=== PATIENT | female | born 1965 | race Hispanic/Latino ===

== ENCOUNTER 2017-11-02 10:33 | Emergency (ER) | payer MEDICARE, OTHER ==
[~2017-11-02] VITALS: Ht 157.5 cm; Wt 101.6 kg
[~2017-11-02 10:33] MED LIST: GLYBURID-METFO1 EAC3 PO; HYDROCODONE-AP1 EA28 PO; LEVETIRACETAM PO; NOVOLOG 70100 UNITS/ SC; PHENYTOIN PO; Z.0.IBUPROFEN600 MG PO; Z.0.LANSOPRAZOLE30 M PO; Z.0.LISINOPRIL10 MG PO
[2017-11-02] MEDS ORDERED: KETOROLAC TROMETHAMINE 30 MG/ML VIAL IV STA (10:56)
[2017-11-02] MEDS ORDERED: ONDANSETRON HCL INJ 2 MG/ML VIAL IV STA (10:56)
[2017-11-02 11:20] LABS: BASOPHILS # (AUTO) 0.1 (0.0-0.1); BASOPHILS % 0.5 % (0.0-1.0); EOSINOPHILS # (AUTO) 0.2 (0.0-0.4); EOSINOPHILS % 1.4 % (0.0-6.0); HEMATOCRIT 36.5 % (34.2-44.1); HEMOGLOBIN 11.6 g/dL (12.0-16.0); LYMPHOCYTES # (AUTO) 2.6 (1.0-3.2); LYMPHOCYTES % 20.5 % (18.0-39.1); MEAN CORPUSCULAR HEMOGLOBIN 24.9 pg (28-32); MEAN CORPUSCULAR HGB CONC 31.8 g/dL (31-35); MEAN CORPUSCULAR VOLUME 78.5 fL (81-99); MONOCYTES # (AUTO) 0.5 (0.2-0.8); MONOCYTES % 4.2 % (4.4-11.3); NEUTROPHILS # (AUTO) 9.1 (2.1-6.9); NEUTROPHILS % 72.7 % (38.7-80.0); PLATELET COUNT 276 x10e3/uL (140-360); RED BLOOD COUNT 4.65 x10e6/uL (3.6-5.1); RED CELL DISTRIBUTION WIDTH 14.9 % (11.7-14.4)
[2017-11-02 11:22] LABS: CLARITY,URINE CLOUDY (CLEAR); COLOR,URINE YELLOW (YELLOW); LEUKOCYTE ESTERASE ,URINE NEGATIVE (NEGATIVE); NITRITE,URINE POSITIVE (NEGATIVE); PROTEIN,URINE DIPSTICK 2+ (NEGATIVE)
[2017-11-02 11:23] LABS: BILIRUBIN,URINE NEGATIVE (NEGATIVE); KETONES,URINE 2+ (NEGATIVE); URINE UROBILINOGEN 0.2 mg/dL (0.2 - 1)
[2017-11-02 11:28] LABS: BACTERIA,URINE MODERATE /HPF; EPITHELIAL CELLS,URINE FEW /LPF; HYALINE CASTS 0-1 (0-1); MUCUS,URINE FEW (RARE); RBC,URINE >50 /HPF (0-5)
[2017-11-02 11:31] LABS: ANION GAP 13.7 mmol/L (8-16); BLOOD UREA NITROGEN 13 mg/dL (7-26); BUN/CREATININE RATIO 17 (6-25); CALCIUM 9.3 mg/dL (8.4-10.2); CARBON DIOXIDE 27 mmol/L (22-29); CHLORIDE 98 mmol/L (98-107); CREATININE, SERUM 0.78 mg/dL (0.57-1.11); EST GLOMERULAR FILTRATION RATE > 60 ML/MIN (60-); GLUCOSE 258 mg/dL (74-118); POTASSIUM 3.7 mmol/L (3.5-5.1); SODIUM 135 mmol/L (136-145)
[2017-11-02] MEDS ORDERED: CEFTRIAXONE SOD 1 GM VIAL IV STA (11:34)
--- NOTE | 2017-11-02 11:42 | Diagnostic Imaging Report ---
EXAM: CT Abdomen and Pelvis WITHOUT contrast INDICATION: \S\Stone Protocol \S\Y COMPARISON: None. TECHNIQUE: Abdomen and pelvis were scanned utilizing a multidetector helical scanner from the lung base to the pubic symphysis without administration of IV contrast. Absence of intravenous contrast decreases sensitivity for detection of focal lesions and vascular pathology. Coronal and sagittal reformations were obtained. Routine protocol was performed. IV CONTRAST: None ORAL CONTRAST: Water COMPLICATIONS: None RADIATION DOSE: Total DLP: 790.7 mGy*cm Estimated effective dose: (DLP x 0.015 x size factor) mSv CTDIvol has been reviewed. It is below the limits set by the Radiation Protocol Committee (RPC). FINDINGS: LINES and TUBES: None. LOWER THORAX: Three vessel coronary artery calcifications. HEPATOBILIARY: No focal hepatic lesions. No biliary ductal dilation. GALLBLADDER: No radio-opaque stones or sludge. No wall thickening. SPLEEN: No splenomegaly. PANCREAS: No focal masses or ductal dilatation. ADRENALS: No adrenal nodules KIDNEYS/URETERS: No hydronephrosis. No cystic or solid mass lesions. A few punctate hyperdensities in the left kidney may reflect renals plaques. Mild left hydronephrosis related to a 0.3 cm calculus at the ureteropelvic junction. Associated perinephric stranding. An adjacent calcification lateral to the ureter likely represents a gonadal vein phlebolith. GI TRACT: No abnormal distention, wall thickening, or evidence of bowel obstruction. There are diverticula within the colon without evidence of diverticulitis. Appendix is normal. PELVIC ORGANS/BLADDER: Unremarkable. LYMPH NODES: No lymphadenopathy. VESSELS: There is mild atherosclerotic disease in the aorta and major arterial branches. PERITONEUM / RETROPERITONEUM: No free air or fluid. BONES: Unremarkable. SOFT TISSUES: Unremarkable. IMPRESSION: A 0.3 cm calculus at the left ureteropelvic junction results in mild left hydronephrosis. Signed by: DR. Randy John MD on 11/02/2017 11:39 AM
[2017-11-02 12:46] VITALS: BP 123/57
== END 2017-11-02 13:05 | disposition home or self-care (01) ==
LOC: ER 10:33
DX: R10.32 Left lower quadrant pain (principal); R11.2 Nausea with vomiting, unspecified; N20.1 Calculus of ureter; I10 Essential (primary) hypertension; E11.9 Type 2 diabetes mellitus without complications; E78.5 Hyperlipidemia, unspecified
CPT/HCPCS: 36415; 74176; 80048; 81001; 85025; 99284; J0696; J1885; J2405

== ENCOUNTER 2018-02-10 13:17 | Observation (INO) | payer MEDICARE, OTHER ==
[~2018-02-10] VITALS: Ht 157.5 cm; Wt 101.6 kg
[2018-02-10] MEDS ORDERED: KETOROLAC TROMETHAMINE 30 MG/ML VIAL IV STA (13:37)
[2018-02-10 13:56] LABS: BASOPHILS # (AUTO) 0.1 (0.0-0.1); BASOPHILS % 0.8 % (0.0-1.0); EOSINOPHILS # (AUTO) 0.7 (0.0-0.4); EOSINOPHILS % 5.1 % (0.0-6.0); HEMATOCRIT 39.2 % (34.2-44.1); HEMOGLOBIN 12.2 g/dL (12.0-16.0); LYMPHOCYTES # (AUTO) 3.7 (1.0-3.2); LYMPHOCYTES % 28.3 % (18.0-39.1); MEAN CORPUSCULAR HEMOGLOBIN 24.7 pg (28-32); MEAN CORPUSCULAR HGB CONC 31.1 g/dL (31-35); MEAN CORPUSCULAR VOLUME 79.4 fL (81-99); MONOCYTES # (AUTO) 0.8 (0.2-0.8); MONOCYTES % 5.8 % (4.4-11.3); NEUTROPHILS # (AUTO) 7.9 (2.1-6.9); NEUTROPHILS % 59.7 % (38.7-80.0); PLATELET COUNT 280 x10e3/uL (140-360); RED BLOOD COUNT 4.94 x10e6/uL (3.6-5.1)
[2018-02-10 13:57] LABS: BILIRUBIN,URINE NEGATIVE (NEGATIVE); CLARITY,URINE CLEAR (CLEAR); COLOR,URINE YELLOW (YELLOW); KETONES,URINE NEGATIVE (NEGATIVE); LEUKOCYTE ESTERASE ,URINE NEGATIVE (NEGATIVE); NITRITE,URINE NEGATIVE (NEGATIVE); PROTEIN,URINE DIPSTICK 2+ (NEGATIVE); URINE UROBILINOGEN 0.2 mg/dL (0.2 - 1)
[2018-02-10 14:09] LABS: BACTERIA,URINE MANY /HPF; EPITHELIAL CELLS,URINE FEW /LPF; WBC,URINE (MAN) 0-5 /HPF (0-5)
[2018-02-10 14:12] LABS: ANION GAP 14.5 mmol/L (8-16); BLOOD UREA NITROGEN 17 mg/dL (7-26); BUN/CREATININE RATIO 22 (6-25); CALCIUM 9.7 mg/dL (8.4-10.2); CARBON DIOXIDE 23 mmol/L (22-29); CHLORIDE 108 mmol/L (98-107); CREATININE, SERUM 0.76 mg/dL (0.57-1.11); EST GLOMERULAR FILTRATION RATE > 60 ML/MIN (60-); GLUCOSE 83 mg/dL (74-118); POTASSIUM 3.5 mmol/L (3.5-5.1); SODIUM 142 mmol/L (136-145)
--- NOTE | 2018-02-10 15:41 | Diagnostic Imaging Report ---
EXAM: CT Abdomen and Pelvis WITHOUT contrast INDICATION: \S\Stone Protocol \[id number] \S\1410 \S\Y COMPARISON: CT dated 11/02/2017 TECHNIQUE: Abdomen and pelvis were scanned utilizing a multidetector helical scanner from the lung base to the pubic symphysis without administration of IV contrast. Absence of intravenous contrast decreases sensitivity for detection of focal lesions and vascular pathology. Coronal and sagittal reformations were obtained. Routine protocol was performed. IV CONTRAST: None ORAL CONTRAST: Water COMPLICATIONS: None RADIATION DOSE: Total DLP: 738.12 mGy*cm Estimated effective dose: (DLP x 0.015 x size factor) mSv CTDIvol has been reviewed. It is below the limits set by the Radiation Protocol Committee (RPC). FINDINGS: LINES and TUBES: None. LOWER THORAX: Unremarkable HEPATOBILIARY: Unenhanced liver is unremarkable. No biliary ductal dilation. GALLBLADDER: No radio-opaque stones or sludge. Mild wall thickening, which could be partially due to underdistention. SPLEEN: No splenomegaly. PANCREAS: No focal masses or ductal dilatation. ADRENALS: No adrenal nodules KIDNEYS/URETERS: 3 mm obstructive left ureteral calculus has slightly advanced, now within left mid ureter. There is unchanged mild left hydroureteronephrosis and perinephric fat stranding. Right kidney is unremarkable. No right hydronephrosis or calculus. GI TRACT: No abnormal distention, wall thickening, or evidence of bowel obstruction. Appendix is normal. PELVIC ORGANS/BLADDER: Unremarkable. Pelvic phleboliths. LYMPH NODES: No lymphadenopathy. VESSELS: Unremarkable. PERITONEUM / RETROPERITONEUM: No free air or fluid. BONES: Degenerative changes of spine, especially at L3-L4 and L4-L5. SOFT TISSUES: Unremarkable. IMPRESSION: 3 mm obstructive left ureteral calculus has slightly advanced, now within left mid ureter, with unchanged mild left hydroureteronephrosis. Signed by: Dr. Bashir Gutierrez MD on 02/10/2018 3:37 PM
[2018-02-10] MEDS ORDERED: DEXTROSE 50% SYRINGE 50 ML IV PRN (16:15)
[2018-02-10] MEDS: INSULIN REGULAR, HUMAN 100 UNIT/1 ML 3ML VIAL SQ SCH ×2 (16:30→21:12)
[2018-02-10] MEDS: PIPER-TAZ 3.375 GM 50 ML IV SCH (17:04)
[2018-02-10] MEDS: SODIUM CHLORIDE 0.9% 1000ML 1,000 ML IV SCH (17:04)
[2018-02-10 17:55] VITALS: BP 123/51
[2018-02-10 17:58] VITALS: BP 123/51
[2018-02-10] MEDS ORDERED: PIPER-TAZ 3.375 GM / NS 50ML IV SCH (18:00)
[2018-02-10] MEDS ORDERED: LEVETIRACETAM500 MG PO (18:13)
[2018-02-10] MEDS ORDERED: HUMALOG MI100 UNIT/2 (18:13)
[2018-02-10] MEDS ORDERED: LISINOPRIL-HCT1 EAC2 PO (18:13)
[2018-02-10] MEDS ORDERED: ATORVASTATIN CA40 MG PO (18:13)
[2018-02-10] MEDS ORDERED: METFORMIN HCL500 MG PO (18:14)
[2018-02-10 20:00] VITALS: BP 123/51
[2018-02-10 20:21] VITALS: BP 114/59
[2018-02-10] MEDS ORDERED: NON-FORMULARY MEDICATION (Atorvastatin Calcium 40 MG) PO SCH (21:00)
--- NOTE | 2018-02-10 21:18 | History and Physical ---
CHIEF COMPLAINT: Left flank pain. HPI: Ms. Pedro is a 52-year-old female admitted with left flank pain, found to have ureteral stone, a CT scan done in the emergency room. She reports that the symptoms were going on for last 3 days, progressively getting worse, it was associated with nausea. She has history of diabetes, hypertension, and seizure disorder. REVIEW OF SYSTEMS: GENERAL: Denies any fever or chills. HEAD: Denies any head trauma. ENT: Denies any earache. CVS: Denies any chest pain. RESPIRATORY: Denies any shortness of breath. GI: Nausea and vomiting. The rest of the review of systems are negative except as in HPI. PAST MEDICAL HISTORY: Diabetes, hypertension, seizure disorder. SURGICAL HISTORY: Tubal ligation. FAMILY AND SOCIAL HISTORY: She smoked for 25 years, quit for 9 years and restarted smoking. She denies any alcohol use. She is disabled, used to work in cafeteria. She lives with her grandchildren. PHYSICAL EXAMINATION: VITAL SIGNS: Temperature 99.4, pulse is 80, blood pressure 114/60, respiratory rate of 18. O2 sat 99%. HEENT: Head atraumatic, normocephalic. NECK: Supple. CHEST: Clear to auscultation bilaterally. No wheezing. HEART: S1 and S2 audible. ABDOMEN: Soft, nontender. EXTREMITIES: No clubbing, cyanosis, or edema. NEUROLOGICAL: Awake and alert. LABS: White count of 13,000; hemoglobin 12.2; platelets 280,000. Chemistry is within normal limits. CT of the abdomen and pelvis shows ureteral stones. ASSESSMENT: 1. Nephrolithiasis and ureteral stones. 2. Diabetes. 3. Hypertension. 4. Seizure disorder. PLAN: 1. Urology consult. 2. Resume home medications. 3. IV hydration. 4. IV antibiotics for possible UTI, UA is not showing any pyuria. Job#: [id number]
[2018-02-10] MEDS: ATORVASTATIN 40 MG TAB PO SCH (21:29)
[2018-02-10] MEDS: LEVETIRACETAM 500 MG TAB PO SCH (22:00)
[2018-02-11] VITALS (8 sets, daily range): BP systolic 92–157; BP diastolic 52–86
[2018-02-11] MEDS: SODIUM CHLORIDE 0.9% 1000ML 1,000 ML IV SCH ×3 (00:49→17:01)
[2018-02-11] MEDS: PIPER-TAZ 3.375 GM 50 ML IV SCH ×4 (00:49→18:00)
[2018-02-11 04:23] LABS: BASOPHILS # (AUTO) 0.1 (0.0-0.1); BASOPHILS % 0.7 % (0.0-1.0); EOSINOPHILS # (AUTO) 0.8 (0.0-0.4); EOSINOPHILS % 6.7 % (0.0-6.0); HEMATOCRIT 33.6 % (34.2-44.1); LYMPHOCYTES # (AUTO) 4.2 (1.0-3.2); LYMPHOCYTES % 34.6 % (18.0-39.1); MEAN CORPUSCULAR HEMOGLOBIN 24.6 pg (28-32); MEAN CORPUSCULAR HGB CONC 29.8 g/dL (31-35); MEAN CORPUSCULAR VOLUME 82.8 fL (81-99); MONOCYTES # (AUTO) 0.8 (0.2-0.8); MONOCYTES % 6.2 % (4.4-11.3); NEUTROPHILS # (AUTO) 6.3 (2.1-6.9); NEUTROPHILS % 51.6 % (38.7-80.0); PLATELET COUNT 225 x10e3/uL (140-360); RED BLOOD COUNT 4.06 x10e6/uL (3.6-5.1); RED CELL DISTRIBUTION WIDTH 16.2 % (11.7-14.4)
[2018-02-11 04:43] LABS: ANION GAP 13.7 mmol/L (8-16); BLOOD UREA NITROGEN 24 mg/dL (7-26); BUN/CREATININE RATIO 26 (6-25); CALCIUM 8.7 mg/dL (8.4-10.2); CARBON DIOXIDE 23 mmol/L (22-29); CHLORIDE 107 mmol/L (98-107); CREATININE, SERUM 0.92 mg/dL (0.57-1.11); EST GLOMERULAR FILTRATION RATE > 60 ML/MIN (60-); GLUCOSE 184 mg/dL (74-118); POTASSIUM 3.7 mmol/L (3.5-5.1); SODIUM 140 mmol/L (136-145)
[2018-02-11] MEDS: ONDANSETRON HCL INJ 2 MG/ML VIAL IV PRN ×3 (07:30→21:43)
--- NOTE | 2018-02-11 07:43 | Consultation ---
DATE OF CONSULTATION: February 11, 2018 UROLOGY CONSULTATION REASON FOR CONSULTATION: Renal colic. HISTORY OF PRESENT ILLNESS: Mindy Pedro is a 52-year-old woman that was noted to have a 3-mm left ureteral stone several months ago. The patient never followed up with a urologist. Her pain got better. Her pain returned and she returned to the emergency room. The patient seen a urologist previously for urinary incontinence. She was prescribed a medication for it, but she reports that the medicine really does not help her incontinence much. The patient had severe left-sided flank pain, reported to the emergency room, was found to have obstructive left ureterolithiasis with hydronephrosis and urological consultation was sought. PAST MEDICAL AND SURGICAL HISTORY 1. Diabetes mellitus. 2. Hypertension. 3. Seizure disorder. 4. Hypercholesterolemia. 5. Status post tubal ligation. 6. Bilateral lower extremity wounds. 7. 3, para 3 by normal spontaneous vaginal delivery. FAMILY HISTORY: Noncontributory to the active urological problem. SOCIAL HISTORY: The patient quit smoking for 9 years and has restarted smoking. She denies ethanol or drug use. 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 She lives with her grandchildren. CURRENT MEDICATIONS: Please refer to the MAR. ALLERGIES: NONE KNOWN. REVIEW OF SYSTEMS: As discussed above in the history of present illness and past medical history, otherwise negative for all systems. PHYSICAL EXAMINATION GENERAL: Morbidly obese woman, lying in the bed, in no apparent distress. VITAL SIGNS: She is currently afebrile. Vital signs currently stable. ABDOMEN: Soft, nondistended, currently is nontender, without current costovertebral angle tenderness. Kidneys are not palpable, without hepatosplenomegaly. No obvious evidence of hernia. For the remaining physical examination systems, please refer to the admission history and physical on the chart. LABORATORY STUDIES: CT scan of the abdomen and pelvis reveals a 3-mm proximal left ureteral stone that is actually in the midureter and has left hydroureteronephrosis that has been chronic. White blood cell count is 12,200, hemoglobin 10, platelets are normal 225,000. The patient's creatinine is normal at 0.92. Her calcium is normal at 8.7. Urinalysis significant for 6-10 RBCs, 0-5 WBCs, and many bacteria. Urine culture was ordered by the emergency room physician. For some reason, it is still not listed as pending in the computer. I asked the nurse to call microbiology to ensure that that is done. ASSESSMENT 1. Left ureterolithiasis. 2. Left hydroureteronephrosis. 3. Left renal colic. 4. Mixed-type urinary incontinence. 5. Morbid obesity. 6. Leukocytosis. 7. Anemia. PLAN 1. Will try a stone passage trial and if fails to progress, the patient will need a stent. 2. Ongoing urological followup is a must. 3. The incontinence can be worked up electively as an outpatient. Thank you very much for involving us in the care of your patient. Will be happy to follow him along with you, as well as an outpatient. Job#: [id number] CQ
[2018-02-11] MEDS: INSULIN REGULAR, HUMAN 100 UNIT/1 ML 3ML VIAL SQ SCH ×4 (08:37→21:00)
[2018-02-11] MEDS: LEVETIRACETAM 500 MG TAB PO SCH ×2 (09:00→17:08)
[2018-02-11] MEDS: HYDROCHLOROTHIAZIDE 25 MG TAB PO SCH (09:00)
[2018-02-11] MEDS: LISINOPRIL 10 MG TAB PO SCH (09:00)
[2018-02-11] MEDS: HYDROMORPHONE 1MG/1ML INJ IV PRN ×2 (12:45→20:21)
--- NOTE | 2018-02-11 17:08 | Diagnostic Imaging Report ---
PROCEDURE:X-RAY ABDOMEN - KUB COMPARISON:[facility], CT, CT ABDOMEN/PELVIS WO, 02/10/2018, 14:32. INDICATIONS:FOLLOW UP CT SCAN LEFT URETERAL CALCULI FINDINGS: No obstructive bowel gas pattern. 6 mm radiopaque density projecting to the left of the L3-L4 intervertebral disc space likely corresponds to the previously visualized left gonadal vein phlebolith. No radiopaque densities correspond to the previously visualized mid left ureteral calculus, which was located more caudally and medially on prior CT. No other radiopaque densities project over the genitourinary system. Multiple pelvic phleboliths. CONCLUSION: 1. No radiopaque densities correspond to the previously visualized mid left ureteral calculus. 2. Stable 6 mm radiopaque density projecting to the left of the L3-L4 intervertebral disc space, corresponding to a left gonadal vein phlebolith. Jorge Ortega M.D. Dictated by: Jorge Ortega M.D. on 02/11/2018 at 17:13 Electronically approved by: Jorge Ortega M.D. on 02/11/2018 at 17:13
[2018-02-11] MEDS: ATORVASTATIN 40 MG TAB PO SCH (20:21)
[2018-02-12] VITALS: BP 137/72
[2018-02-12] MEDS: PIPER-TAZ 3.375 GM 50 ML IV SCH ×5 (00:08→23:49)
[2018-02-12] MEDS: SODIUM CHLORIDE 0.9% 1000ML 1,000 ML IV SCH ×4 (01:20→23:49)
[2018-02-12 04:18] VITALS: BP 152/85
[2018-02-12] MEDS: HYDROMORPHONE 1MG/1ML INJ IV PRN (04:20)
[2018-02-12] MEDS: ONDANSETRON HCL INJ 2 MG/ML VIAL IV PRN (04:21)
[2018-02-12] MEDS: INSULIN REGULAR, HUMAN 100 UNIT/1 ML 3ML VIAL SQ SCH ×4 (07:30→21:25)
[2018-02-12 08:00] VITALS: BP 113/52
[2018-02-12] MEDS: HYDROCHLOROTHIAZIDE 25 MG TAB PO SCH (09:00)
[2018-02-12] MEDS: LISINOPRIL 10 MG TAB PO SCH (09:00)
[2018-02-12 12:00] VITALS: BP 118/81
[2018-02-12] MEDS ORDERED: ALPRAZOLAM 0.5 MG TAB ONE (12:26)
[2018-02-12] MEDS ORDERED: DIPHENHYDRAMINE HCL 25 MG CAP ONE (12:27)
[2018-02-12] MEDS ORDERED: BELLADONNA/OPIUM 30 MG SUPP RC ONE (13:11)
[2018-02-12] MEDS ORDERED: IOPAMIDOL 300MG/ML 50ML INFUS..BTL IV ONE (13:12)
[2018-02-12] MEDS: LEVETIRACETAM 500 MG TAB PO SCH ×2 (14:42→17:24)
[2018-02-12 16:00] VITALS: BP 101/53
[2018-02-12] MEDS ORDERED: PROPOFOL IV EMULSION 10 MG/ML 20 ML VIAL ONE (17:33)
[2018-02-12] MEDS ORDERED: SEVOFLURANE INHAL SOLN 250 ML PEN BTL ONE (17:33)
[2018-02-12] MEDS ORDERED: DEXAMETHASONE SOD PHOS INJ 4 MG/ML VIAL ONE (17:33)
[2018-02-12] MEDS ORDERED: ONDANSETRON HCL INJ 2 MG/ML VIAL ONE (17:33)
[2018-02-12] MEDS ORDERED: LIDOCAINE HCL 2% LOCAL INJ 5 ML SDV VIAL INJ ONE (17:33)
[2018-02-12 20:00] VITALS: BP 144/66
[2018-02-12] MEDS ORDERED: FENTANYL CITRATE/PF 100MCG/2 ML INJ ONE (20:19)
[2018-02-12] MEDS ORDERED: MIDAZOLAM HCL 2 MG/2 ML VIAL ONE (20:19)
[2018-02-12] MEDS: ATORVASTATIN 40 MG TAB PO SCH (21:25)
[2018-02-13] VITALS: BP 141/86
[2018-02-13 01:15] VITALS: BP 141/86
[2018-02-13 04:00] VITALS: BP 124/76
[2018-02-13] MEDS: PIPER-TAZ 3.375 GM 50 ML IV SCH ×2 (05:13→12:00)
[2018-02-13 08:00] VITALS: BP 121/64
[2018-02-13 08:22] LABS: BASOPHILS # (AUTO) 0.1 (0.0-0.1); BASOPHILS % 0.8 % (0.0-1.0); EOSINOPHILS # (AUTO) 0.9 (0.0-0.4); EOSINOPHILS % 8.3 % (0.0-6.0); HEMATOCRIT 32.7 % (34.2-44.1); HEMOGLOBIN 10.3 g/dL (12.0-16.0); LYMPHOCYTES # (AUTO) 2.9 (1.0-3.2); LYMPHOCYTES % 28.2 % (18.0-39.1); MEAN CORPUSCULAR HEMOGLOBIN 25.2 pg (28-32); MEAN CORPUSCULAR HGB CONC 31.5 g/dL (31-35); MONOCYTES # (AUTO) 0.6 (0.2-0.8); MONOCYTES % 5.9 % (4.4-11.3); NEUTROPHILS # (AUTO) 5.8 (2.1-6.9); NEUTROPHILS % 56.5 % (38.7-80.0); PLATELET COUNT 225 x10e3/uL (140-360); RED BLOOD COUNT 4.09 x10e6/uL (3.6-5.1); RED CELL DISTRIBUTION WIDTH 15.8 % (11.7-14.4)
[2018-02-13] MEDS: HYDROCHLOROTHIAZIDE 25 MG TAB PO SCH (08:31)
[2018-02-13] MEDS: SODIUM CHLORIDE 0.9% 1000ML 1,000 ML IV SCH (08:31)
[2018-02-13] MEDS: LEVETIRACETAM 500 MG TAB PO SCH (08:31)
[2018-02-13] MEDS: LISINOPRIL 10 MG TAB PO SCH (08:31)
[2018-02-13 08:39] LABS: ANION GAP 13.5 mmol/L (8-16); BLOOD UREA NITROGEN 17 mg/dL (7-26); BUN/CREATININE RATIO 19 (6-25); CALCIUM 8.9 mg/dL (8.4-10.2); CARBON DIOXIDE 26 mmol/L (22-29); CHLORIDE 105 mmol/L (98-107); EST GLOMERULAR FILTRATION RATE > 60 ML/MIN (60-); GLUCOSE 196 mg/dL (74-118); POTASSIUM 4.5 mmol/L (3.5-5.1); SODIUM 140 mmol/L (136-145)
[2018-02-13] MEDS: INSULIN REGULAR, HUMAN 100 UNIT/1 ML 3ML VIAL SQ SCH ×2 (08:49→12:00)
[2018-02-13 12:00] VITALS: BP 122/63
[2018-02-13] MEDS ORDERED: TYLENOL WITH C1 EACH PO (17:16)
[2018-02-13] MEDS ORDERED: LEVAQUIN500 MG PO (17:17)
[2018-02-13] MEDS ORDERED: DITROPAN XL5 MG PO (17:17)
--- NOTE | 2018-02-13 19:03 | Discharge Summary ---
FINAL DIAGNOSES 1. Ureterolithiasis and nephrolithiasis, status post stent placement. 2. Urinary tract infection. 3. Hypertension. 4. History of seizure disorder. 5. Diabetes. ADMISSION HISTORY AND HOSPITAL COURSE: Ms. Pedro is a 52-year-old female who presented with left flank pain, found to have nephrolithiasis and ureteral stone. Urology was consulted. The patient underwent stent placement by urology and they recommended to discharge the patient. The patient will be discharged home to follow up with primary care physician and follow up with urologist as an outpatient. DISCHARGE MEDICATIONS: List reviewed. YULIA SQUIRES MD Job#: [id number]
--- NOTE | 2018-04-15 00:45 | Operative Report ---
DATE OF PROCEDURE: February 12, 2018 PREOPERATIVE DIAGNOSES: 1. Left hydronephrosis due to stone. 2. Renal colic. POSTOPERATIVE DIAGNOSES: 1. Left hydronephrosis due to stone. 2. Renal colic. 3. Mild cystocele. 4. Mild rectocele. OPERATIONS PERFORMED: 1. Cystourethroscopy with bilateral ureteral catheterization and retrograde ureteropyelography (separate procedure performed for the renal colic). 2. Interpretation of retrograde ureteropyelography. 3. Supervision of fluoroscopy, no radiologist present. 4. Cystourethroscopy with insertion of left indwelling ureteral stent (separate procedure performed to relieve the hydronephrosis). ANESTHESIA: General. COMPLICATIONS: None. CLINICAL SUMMARY: Please refer to consultation from this hospitalization and the hospital chart. OPERATIVE PROCEDURE IN DETAIL: Informed consent was verified. Mindy Pedro was properly identified, taken to the operating room, and placed on the cystoscopy table in supine position. Anesthesia was uneventfully begun. The patient was then carefully and gently repositioned in the dorsal lithotomy position with all pressure points well padded. Her genitalia were prepared and draped in usual sterile fashion. The 22.5-Upper Sor[place] cystoscope sheath with the obturator in place was atraumatically inserted into patient's urethra and the bladder was drained. Panendoscopy of the urinary bladder revealed no suspicious mucosal lesions. No tumors, no stones, and no diverticula. Normally positioned and configured ureteral orifices were identified. A ureteral catheter was used to cannulate each ureter, and retrograde ureteral pyelograms were performed. Interpretation of retrograde ureteropyelography: Contrast was instilled in retrograde fashion bilaterally. There were no tumors, there were no suspicious lesions except for the filling defect in the left ureter. Proximal to that, there was hydroureteronephrosis. With cystoscopic and fluoroscopic guidance, a left-sided indwelling ureteral stent was then placed. It was coiled in patient's kidney as well as patient's bladder. The retaining suture was cut short. The patient's bladder was then drained. The cystoscope was withdrawn. Pelvic examination under anesthesia revealed a mild cystocele and mild rectocele. No abnormal palpable pelvic masses could be appreciated. Patient was then uneventfully reversed from anesthesia and taken to recovery room in stable condition. There were no complications to the procedure. Patient tolerated the procedure well. Plans will be to return the patient to the operating room in several weeks to remove her stent, perform ureteroscopy, and hopefully render the patient stent-free and stone-free. Job#: [id number]
== END 2018-02-13 17:44 | disposition home or self-care (01) ==
LOC: ER 13:17 → ERHOLD 16:25 → MED/SURG2 17:33
PROVIDERS: ADMIT Internal Medicine; ATTEND Internal Medicine
DX: N13.6 Pyonephrosis (principal); E11.9 Type 2 diabetes mellitus without complications; E78.5 Hyperlipidemia, unspecified; G40.909 Epilepsy, unspecified, not intractable, without status epilepticus; N39.46 Mixed incontinence; E66.01 Morbid (severe) obesity due to excess calories; D64.9 Anemia, unspecified; D72.829 Elevated white blood cell count, unspecified; Z87.891 Personal history of nicotine dependence; I10 Essential (primary) hypertension; Z68.41 Body mass index [BMI] 40.0-44.9, adult; N81.6 Rectocele; N81.10 Cystocele, unspecified
CPT/HCPCS: 36415 ×4; 52332; 74018; 74176; 74420; 80048 ×3; 81001; 82948 ×4; 83970; 84550; 85025 ×3; 87086; 87186; 96361 ×2; 96372; 99284; C1758; C2617; G0378 ×4; J1100; J1170 ×2; J1885; J2001; J2250; J2405 ×2; J2543 ×4; J7030 ×3; Q9967

== ENCOUNTER → 2018-03-07 | Day surgery (SDC) | payer MEDICARE, OTHER ==
[~2018-03-07] MED LIST changes: +ATORVASTATIN CA40 MG PO; +CEFTRIAXONE SOD 1 GM VIAL ONE; +DESFLURANE 240 ML BTL INH ONE; +DEXAMETHASONE SOD PHOS INJ 4 MG/ML VIAL ONE; +DITROPAN XL5 MG PO; +FENTANYL CITRATE/PF 100MCG/2 ML INJ ONE; +HUMALOG MI100 UNIT/2; +IOPAMIDOL 300MG/ML 50ML INFUS..BTL IV ONE; +LEVAQUIN500 MG PO; +LEVETIRACETAM500 MG PO; +LIDOCAINE HCL 2% LOCAL INJ 5 ML SDV VIAL INJ ONE; +LISINOPRIL-HCT1 EAC2 PO; +METFORMIN HCL500 MG PO; +MIDAZOLAM HCL 2 MG/2 ML VIAL ONE; +ONDANSETRON HCL INJ 2 MG/ML VIAL ONE; +PROPOFOL IV EMULSION 10 MG/ML 20 ML VIAL ONE; +TYLENOL WITH C1 EACH PO
--- NOTE | 2018-03-07 12:49 | Diagnostic Imaging Report ---
PROCEDURE:X-RAY ABDOMEN - KUB COMPARISON:CT abdomen and pelvis without contrast 02/10/2018. INDICATIONS:PREOPERATIVE XRAY FOR STENT SURGERY FINDINGS: Left internal ureteral stent is positioned with the proximal locking loop projecting over the left renal pelvis and the distal locking loop projecting over the urinary bladder. No suspicious calcifications are identified projecting along the course of the left ureteral stent or over the left renal shadow. Multiple pelvic phleboliths and uterine artery calcifications are again noted. The bowel gas pattern is nonobstructive. Regional skeletal structures are intact with multilevel degenerative disc changes of the lumbar spine. CONCLUSION: Internal left ureteral stent positioned as described. Previously described proximal left ureteral calculi are no longer visualized. Dictated by: Jeremiah Lopez M.D. on 03/07/2018 at 12:54 Electronically approved by: Jeremiah Lopez M.D. on 03/07/2018 at 12:54
--- NOTE | 2018-05-06 01:01 | Operative Report ---
DATE OF PROCEDURE: March 07, 2018 PREOPERATIVE DIAGNOSES 1. Left nephrolithiasis. 2. Left indwelling ureteral stent. POSTOPERATIVE DIAGNOSES 1. Left nephrolithiasis. 2. Left indwelling ureteral stent. 3. Mild cystocele. 4. Urethral hypermobility. OPERATIONS PERFORMED 1. Cystourethroscopy with complicated removal of left indwelling ureteral stent (separate procedure performed with separate scope for the diagnosis of stent). 2. Left ureteroscopy with stone manipulation (separate procedure performed for the nephrolithiasis). 3. Interpretation of retrograde ureteropyelography. 4. Radiological services for supervision of interpretation of ureteroscopy. 5. Supervision of fluoroscopy. No radiologist present. 6. Pelvic examination under anesthesia. ANESTHESIA: General. COMPLICATION: None. CLINICAL SUMMARY: Ms. Mindy Pedro is a 52-year-old woman with nephrolithiasis and a stent. She is brought for the above procedures. She is aware of the risks of bleeding, infection, injury to adjacent structures, need for additional procedures, and elected to proceed. OPERATIVE PROCEDURE IN DETAIL: Informed consent was verified. Ms. Mindy Pedro was properly identified, taken to the operating room, placed on the cystoscopy table in supine position. Anesthesia was uneventfully begun. The patient was then carefully and gently repositioned in dorsal lithotomy position with all pressure points well padded and her genitalia were prepared and draped in usual sterile fashion. The 22.5-Lao cystoscope sheath with an obturator in place was atraumatically inserted into the patient's urethra and the bladder was drained. Panendoscopy of urinary bladder revealed a stent emerging from the left ureteral orifice. The stent was somewhat encrusted. A guidewire was then placed alongside the stent and guided to below of patient's kidneys. The stent was then grasped, completely removed, then discarded. Semirigid ureteroscope was then brought up alongside the guidewire into the distal left ureter. Contrast was injected. There was sand, but no stones. We then placed a flexible ureteroscope over the guidewire and guided below the patient's kidney. Panendoscopy of the interrenal collecting system revealed some fine sand and very small stone fragments. These stones were yellow and may very well be uric acid stones. There were no suspicious lesions. A basket was utilized to grasp a sample stone and we extracted it. We re-introduced the ureteroscope. Performed panendoscopy. Irrigated to loosen all these fine sand fragments. No significantly sized stone fragments remained. The ureter was unremarkable for remaining stone debris. The patient's bladder then drained. The cystoscope was withdrawn. Pelvic examination under anesthesia revealed a mild cystocele with urethral hypermobility. No suspicious mucosal lesions were identified. There were no abnormal pelvic masses that could be appreciated. Interpretation of retrograde ureterography: Contrast was instilled in retrograde fashion via the ureteroscope on the left-hand side. There was fullness of the collecting system, but there was no evidence of filling defects and there was no evidence of obstruction. Unobstructed drainage was observed fluoroscopically. The ureter was unremarkable. The patient was uneventfully reversed from anesthesia, taken to recovery room in stable condition. There were no complications to procedure. She tolerated the procedure well. Plans will be to follow the patient up in the office and proceed with metabolic stone workup. Job#: [id number] CQ
--- OUTSIDE RECORDS SUMMARY | 2018-05-07 23:04 | XMS REPORT | Continuity of Care Document ---
Author Author [facility] Organization [facility] Address [address] [place] [address] Phone Unavailable Care Team Providers Care Press Reader Name Role Phone NO, PCP PCP Unavailable Insurance Providers Guarantor Mindy Dumas Address [address] [place] [address] Email [email or web address] by [employer] Payer [employer] Policy Number [id number] Subscriber's Name Mindy Dumas Relationship 18 Self / Same As Patient Effective Date 17 Payer [employer] Policy Number [id number] Subscriber's Name WillisMindy Relationship 18 Self / Same As Patient Group Name UNEMPLOYED Effective Date 13 Advance Directives Directive Response Recorded Date/Time Does the patient have an advance directive? No 02/10/18 5:56pm If yes, is advance directive on file with [facility]? No 03/07/12 11:50am If not on file with [facility] will patient provide a copy? No 03/07/12 11:50am Do you have a Directive to Physician? No 02/10/18 1:51pm Do you have a Medical Power of Rn Obgyn? No 02/10/18 1:51pm Do you have an out of hospital Do Not Resuscitate Order? No 02/10/18 1:51pm Do you have any special needs we should be aware of? No 02/10/18 1:51pm Do you have a support person here with you today? Yes 02/10/18 1:51pm Did patient receive Notice of Privacy Practices? Yes 02/10/18 1:51pm Did patient receive patient rights and responsibilities? Yes 02/10/18 1:51pm Problems No problem information available. Medications Current Home Medications Medication Dose Units Route Directions Days Qty Instructions Start Date Acetaminophen With Codeine (Tylenol With Codeine #3 Tablet) 1 Each Tablet 300 Mg Oral Every 4 Hours as needed for Pain Atorvastatin Calcium 40 Mg Tablet 40 Mg Oral Bedtime 30 Tab Insulin Npl/Insulin Lispro (Humalog Mix 75-25 Kwikpen) 100 Unit/1 Ml Insuln.pen 60 Twice A Day Levetiracetam 500 Mg Tablet 1 Tab Oral Twice A Day Levofloxacin (Levaquin) 500 Mg Tablet 500 Mg Oral Daily Lisinopril/Hydrochlorothiazide (Lisinopril-Hctz 10-12.5 Mg Tab) 1 Each Tablet 1 Tab Oral Daily Metformin Hcl 500 Mg Tablet 1,000 Mg Oral Twice A Day 60 Tab Oxybutynin Chloride (Ditropan Xl) 5 Mg Tab.er.24 5 Mg Oral Twice A Day 30 Tab Past Home Medications Medication Directions Ordered Status Glyburide, Micro/Metformin Hcl (Glyburid-Metformin 5-500 Mg Tb) 1 Each Tablet, 2 Each Oral Twice A Day Discontinued Hydrocodone Bit/Acetaminophen (Hydrocodone-Apap 7.5-750 Tb) 1 Each Tablet, 1 Each Oral As Needed Discontinued Ibuprofen 600 Mg Tablet, 600 Mg Oral As Needed Discontinued Insulin Aspart (Novolog 70/30 10ML Vial) 100 Units/Ml Ml, Units Subcutaneously Twice A Day Discontinued Lansoprazole 30 Mg Tab.rap.dr, 30 Mg Oral Daily Discontinued Levetiracetam 250 Mg Tablet, 250 Mg Oral Bedtime Discontinued Lisinopril 10 Mg Tablet, 10 Mg Oral Daily Discontinued Phenytoin Sodium Extended 200 Mg Capsule, 200 Mg Oral Bedtime Discontinued Social History No social history information available. Hospital Discharge Instructions No hospital discharge instruction information available. Plan of Care Discharge Date 02/13/18 5:44pm Disposition HOME, SELF-CARE Instructions/Education Provided Kidney Stones Prescriptions See Medication Section Referrals LYNNE LAMAR MD (Urology) Order Date: 3 Weeks Entered Date: 02/13/2018 5:19pm Address: [facility] [place] [address] Additional Instructions/Education Call Saadia in Dr. Lamar office and make appointment for stent removal. Functional Status Query Response Date Recorded Assistive Devices None February 10, 2018 5:58pm Ambulation Ability Independent February 10, 2018 5:58pm Toileting Ability Independent February 12, 2018 6:02pm Allergies, Adverse Reactions, Alerts No known allergies. Immunizations No immunization information available. Vital Signs Acute Vital Signs Vital Response Date/Time Temperature (Fahrenheit) 97.6 degrees F (97.6 - 99.5) 02/13/2018 12:00pm Pulse Pulse Rate (adult) 69 bpm (60 - 90) 02/13/2018 12:00pm Respiratory Rate 18 bpm (12 - 24) 02/13/2018 12:00pm Blood Pressure 122/63 mm Hg 02/13/2018 12:00pm Height 5 ft 2 in 02/10/2018 1:34pm Weight 224 lb 02/10/2018 1:34pm Body Mass Index 41.0 kg/m^2 02/10/2018 1:34pm Results Laboratory Results Test Name Result Units Flags Reference Collection Date/Time Result Date/ Time Comments Urine Hyaline Casts 0-1 0-1 11/02/2017 11:00am 11/02/2017 11:28am Urine Mucus FEW H RARE 11/02/2017 11:00am 11/02/2017 11:28am White Blood Count 10.19 x10e3/uL 4.8-10.8 02/13/2018 8:10am 02/13/2018 8:24am Red Blood Count 4.09 x10e6/uL 3.6-5.1 02/13/2018 8:10am 02/13/2018 8: 24am Hemoglobin 10.3 g/dL L 12.0-16.0 02/13/2018 8:10am 02/13/2018 8:24am Hematocrit 32.7 % L 34.2-44.1 02/13/2018 8:10am 02/13/2018 8:24am Mean Corpuscular Volume 80.0 fL L 81-99 02/13/2018 8:02/13/2018 8: 24am Mean Corpuscular Hemoglobin 25.2 pg L 28-32 02/13/2018 8:2017 8:24am Mean Corpuscular Hemoglobin Concent 31.5 g/dL 31-35 02/13/2018 8:02/13/2018 8:24am Red Cell Distribution Width 15.8 % H 11.7-14.4 02/13/2018 8:2017 8:24am Platelet Count 225 x10e3/uL 140-360 02/13/2018 8:02/13/2018 8: 24am Neutrophils (%) (Auto) 56.5 % 38.7-80.0 02/13/2018 8:02/13/2018 8: 24am Lymphocytes (%) (Auto) 28.2 % 18.0-39.1 02/13/2018 8:02/13/2018 8: 24am Monocytes (%) (Auto) 5.9 % 4.4-11.3 02/13/2018 8:02/13/2018 8: 24am Eosinophils (%) (Auto) 8.3 % H 0.0-6.0 02/13/2018 8:02/13/2018 8: 24am Basophils (%) (Auto) 0.8 % 0.0-1.0 02/13/2018 8:02/13/2018 8:24am IM GRANULOCYTES % 0.3 % 0.0-1.0 02/13/2018 8:02/13/2018 8:24am Neutrophils # (Auto) 5.8 2.1-6.9 02/13/2018 8:02/13/2018 8:24am Lymphocytes # (Auto) 2.9 1.0-3.2 02/13/2018 8:02/13/2018 8:24am Monocytes # (Auto) 0.6 0.2-0.8 02/13/2018 8:02/13/2018 8:24am Eosinophils # (Auto) 0.9 H 0.0-0.4 02/13/2018 8:02/13/2018 8: 24am Basophils # (Auto) 0.1 0.0-0.1 02/13/2018 8:10am 02/13/2018 8:24am Absolute Immature Granulocyte (auto 0.03 x10e3/uL 0-0.1 02/13/2018 8: 10am 02/13/2018 8:24am Urine Color YELLOW YELLOW 02/10/2018 1:50pm 02/10/2018 1:57pm Urine Clarity CLEAR CLEAR 02/10/2018 1:50pm 02/10/2018 1:57pm Urine Specific [place] 1.025 1.010-1.025 02/10/2018 1:50pm 2017 1:57pm Urine pH 5 5 - 7 02/10/2018 1:50pm 02/10/2018 1:57pm Urine Leukocyte Esterase NEGATIVE NEGATIVE 02/10/2018 1:50pm 2017 1:57pm Urine Nitrite NEGATIVE NEGATIVE 02/10/2018 1:50pm 02/10/2018 1:57pm Urine Protein 2+ H NEGATIVE 02/10/2018 1:50pm 02/10/2018 1:57pm Urine Glucose (UA) NEGATIVE NEGATIVE 02/10/2018 1:50pm 02/10/2018 1: 57pm Urine Ketones NEGATIVE NEGATIVE 02/10/2018 1:50pm 02/10/2018 1:57pm Urine Urobilinogen 0.2 mg/dL 0.2 - 1 02/10/2018 1:50pm 02/10/2018 1: 57pm Urine Bilirubin NEGATIVE NEGATIVE 02/10/2018 1:50pm 02/10/2018 1: 57pm Urine Blood 2+ H NEGATIVE 02/10/2018 1:50pm 02/10/2018 1:57pm Urine WBC 0-5 /HPF 0-5 02/10/2018 1:50pm 02/10/2018 2:10pm Urine RBC 6-10 /HPF H 0-5 02/10/2018 1:50pm 02/10/2018 2:10pm Urine Bacteria MANY /HPF H NONE 02/10/2018 1:50pm 02/10/2018 2:10pm Urine Epithelial Cells FEW /LPF NONE 02/10/2018 1:50pm 02/10/2018 2: 10pm Sodium Level 140 mmol/L 136-145 02/13/2018 8:10am 02/13/2018 8:40am Potassium Level 4.5 mmol/L 3.5-5.1 02/13/2018 8:10a02/13/2018 8:40am Chloride Level 105 mmol/L 98-107 02/13/2018 8:10a02/13/2018 8:40am Carbon Dioxide Level 26 mmol/L 22-29 02/13/2018 8:10a02/13/2018 8: 40am Anion Gap 13.5 mmol/L 8-16 02/13/2018 8:10a02/13/2018 8:40am Blood Urea Nitrogen 17 mg/dL 7-02/13/2018 8:10a02/13/2018 8:40am Creatinine 0.90 mg/dL 0.57-1.11 02/13/2018 8:10a02/13/2018 8:40am BUN/Creatinine Ratio 19 6-25 02/13/2018 8:10a02/13/2018 8:40am Estimat Glomerular Filtration Rate > 60 ML/MIN 60- 02/13/2018 8:10a 8:40am Ranges were taken from the National Kidney Disease Education Program and the National Kid[employer] literature. Reference ranges: 60 or greater: Normal 16-59 (for 3 consecutive months): Chronic kidney disease 15 or less: Kidney failure Glucose Level 196 mg/dL H 74-118 02/13/2018 8:10am 02/13/2018 8:40am Calcium Level 8.9 mg/dL 8.4-10.2 02/13/2018 8:10am 02/13/2018 8:40am Bedside Glucose 234 mg/dL H 70-120 02/13/2018 3:31pm 02/13/2018 4:27pm Meter ID: [id number] Uric Acid 3.6 mg/dL 2.6-8.0 02/13/2018 8:10am 02/13/2018 8:40am Microbiology Results Procedure Source Organism/Result Collection Date/Time Result Date/Time Result Status Urine Culture Urine,Random ESCHERICHIA COLI 02/10/2018 1:30pm 02/13/2018 8 :14am Final Procedures Procedure Status Date Provider(s) Cystoscopy with retrograde pyelography Completed 02/12/[address] of abdomen and pelvis without contrast Active 11/02/[address] of abdomen and pelvis without contrast Active 02/10/18 SEBAS DELVALLE MD Encounters Encounter Location Arrival/Admit Date Discharge/Depart Date Attending Provider Discharged Inpatient (obs) [facility] 02/10/18 4:25pm 07/22 5:44pm YULIA SQUIRES MD Departed Emergency Room [facility] 11/02/17 10:33am 11/02 1:05pm SEBAS DELVALLE MD
== END | disposition home or self-care (01) ==
LOC: OR 11:25
PROVIDERS: ATTEND Urology
DX: N20.0 Calculus of kidney (principal); Z46.6 Encounter for fitting and adjustment of urinary device; N81.10 Cystocele, unspecified; N36.41 Hypermobility of urethra; I10 Essential (primary) hypertension; E11.9 Type 2 diabetes mellitus without complications; Z01.810 Encounter for preprocedural cardiovascular examination; Z79.4 Long term (current) use of insulin
CPT/HCPCS: 36415; 74018; 74420; 82948; 88300; 93005; J0696; J1100; J2001; J2250; J2405

== ENCOUNTER 2018-07-16 18:03 | Emergency (ER) | payer MEDICARE, OTHER ==
[~2018-07-16] VITALS: Ht 167.6 cm; Wt 100.7 kg
[~2018-07-16 18:03] MED LIST changes: -CEFTRIAXONE SOD 1 GM VIAL ONE; -DESFLURANE 240 ML BTL INH ONE; -DEXAMETHASONE SOD PHOS INJ 4 MG/ML VIAL ONE; -FENTANYL CITRATE/PF 100MCG/2 ML INJ ONE; -IOPAMIDOL 300MG/ML 50ML INFUS..BTL IV ONE; -LIDOCAINE HCL 2% LOCAL INJ 5 ML SDV VIAL INJ ONE; -MIDAZOLAM HCL 2 MG/2 ML VIAL ONE; -ONDANSETRON HCL INJ 2 MG/ML VIAL ONE; -PROPOFOL IV EMULSION 10 MG/ML 20 ML VIAL ONE
[2018-07-16] MEDS ORDERED: SODIUM CHLORIDE 0.9% 1000ML 1,000 ML IV STA (18:31)
[2018-07-16] MEDS ORDERED: MORPHINE SULFATE INJ 4 MG/ML INJ IV ONE (18:45)
[2018-07-16 19:07] LABS: BASOPHILS # (AUTO) 0.1 (0.0-0.1); BASOPHILS % 0.7 % (0.0-1.0); EOSINOPHILS # (AUTO) 0.4 (0.0-0.4); EOSINOPHILS % 3.3 % (0.0-6.0); HEMATOCRIT 40.5 % (34.2-44.1); HEMOGLOBIN 12.7 g/dL (12.0-16.0); LYMPHOCYTES # (AUTO) 3.2 (1.0-3.2); LYMPHOCYTES % 24.4 % (18.0-39.1); MEAN CORPUSCULAR HEMOGLOBIN 26.1 pg (28-32); MEAN CORPUSCULAR HGB CONC 31.4 g/dL (31-35); MEAN CORPUSCULAR VOLUME 83.2 fL (81-99); MONOCYTES # (AUTO) 0.9 (0.2-0.8); MONOCYTES % 6.6 % (4.4-11.3); NEUTROPHILS # (AUTO) 8.4 (2.1-6.9); NEUTROPHILS % 64.5 % (38.7-80.0); PLATELET COUNT 314 x10e3/uL (140-360); RED BLOOD COUNT 4.87 x10e6/uL (3.6-5.1); RED CELL DISTRIBUTION WIDTH 15.4 % (11.7-14.4)
[2018-07-16 19:20] LABS: PREGNANCY TEST, URINE NEGATIVE (NEGATIVE)
[2018-07-16 19:24] LABS: CLARITY,URINE HAZY (CLEAR); COLOR,URINE YELLOW (YELLOW); LEUKOCYTE ESTERASE ,URINE NEGATIVE (NEGATIVE); NITRITE,URINE POSITIVE (NEGATIVE); PROTEIN,URINE DIPSTICK 2+ (NEGATIVE)
[2018-07-16 19:25] LABS: ALBUMIN 3.8 g/dL (3.5-5.0); ALBUMIN/GLOBULIN RATIO 0.8 (0.8-2.0); CALCIUM 9.5 mg/dL (8.4-10.2); CREATININE, SERUM 0.98 mg/dL (0.57-1.11); MAGNESIUM 2.6 MG/DL (1.3-2.1)
[2018-07-16 19:25] LABS: BILIRUBIN,URINE NEGATIVE (NEGATIVE); KETONES,URINE NEGATIVE (NEGATIVE); URINE UROBILINOGEN 0.2 mg/dL (0.2 - 1)
[2018-07-16 19:43] LABS: BACTERIA,URINE FEW /HPF; EPITHELIAL CELLS,URINE FEW /LPF; RBC,URINE >50 /HPF (0-5)
--- NOTE | 2018-07-16 20:27 | Diagnostic Imaging Report ---
EXAM: CT Abdomen and Pelvis WITHOUT contrast INDICATION: ^Stone protocol ^[id number] ^1900 COMPARISON: CT abdomen and pelvis 02/10/2018 TECHNIQUE: Abdomen and pelvis were scanned utilizing a multidetector helical scanner from the lung base to the pubic symphysis without administration of IV contrast. Absence of intravenous contrast decreases sensitivity for detection of focal lesions and vascular pathology. Coronal and sagittal reformations were obtained. Routine protocol was performed. IV CONTRAST: None. ORAL CONTRAST: Water RADIATION DOSE: Total DLP: 845.1 mGy*cm Estimated effective dose: (DLP x 0.015 x size factor) mSv COMPLICATIONS: None FINDINGS: LINES and TUBES: None. LOWER THORAX: Unremarkable HEPATOBILIARY: No focal hepatic lesions. No biliary ductal dilation. GALLBLADDER: No radio-opaque stones or sludge. No wall thickening. SPLEEN: No splenomegaly. PANCREAS: No focal masses or ductal dilatation. ADRENALS: No adrenal nodules KIDNEYS/URETERS: No hydronephrosis. No cystic or solid mass lesions. 5 mm calcified stone in the proximal left ureter, 3.5 cm below the UP junction, which is new compared to prior exam since the prior stone was more distal and smaller. There is moderate surrounding fat stranding. Mild left hydroureteronephrosis is unchanged. No calcified stones in both renal parenchyma or right ureter. GI TRACT: No abnormal distention, wall thickening, or evidence of bowel obstruction. Stable diverticulosis throughout the sigmoid colon without diverticulitis. Appendix is normal. PELVIC ORGANS/BLADDER: Unremarkable. LYMPH NODES: No lymphadenopathy. VESSELS: Unremarkable. PERITONEUM / RETROPERITONEUM: No free air or fluid. BONES: Multilevel degenerative changes of the lumbar spine. SOFT TISSUES: Unremarkable. IMPRESSION: 1. Proximal left ureteral stone (5 mm) with surrounding moderate fat stranding. 2. Stable diverticulosis of the sigmoid colon. Signed by: Dr. Samantha Wynne M.D. on 07/16/2018 8:23 PM
[2018-07-16] MEDS ORDERED: CEFUROXIME500 MG PO (21:01)
[2018-07-16] MEDS ORDERED: TYLENOL WITH C1 EACH PO (21:01)
[2018-07-16] MEDS ORDERED: ZOFRAN4 MG SL (21:01)
== END 2018-07-16 21:54 | disposition home or self-care (01) ==
LOC: ER 18:03
DX: R10.32 Left lower quadrant pain (principal); R11.2 Nausea with vomiting, unspecified; N20.1 Calculus of ureter; N30.91 Cystitis, unspecified with hematuria; I10 Essential (primary) hypertension; E11.9 Type 2 diabetes mellitus without complications; E78.5 Hyperlipidemia, unspecified
CPT/HCPCS: 36415; 74176; 80053; 81001; 81025; 82150; 83605; 83690; 83735; 85025; 87086; 99284; J7030; J2270

== ENCOUNTER 2018-12-01 22:48 | Emergency (ER) | payer MEDICARE, OTHER ==
[~2018-12-01] VITALS: Ht 167.6 cm; Wt 100.7 kg
[~2018-12-01 22:48] MED LIST changes: +CEFUROXIME500 MG PO; +ZOFRAN4 MG SL
[2018-12-01] MEDS ORDERED: ONDANSETRON HCL INJ 2MG/ML 2ML 2 MG/ML VIAL IV STA (22:57)
[2018-12-01] MEDS ORDERED: FAMOTIDINE 20 MG/2 ML VIAL IV STA (22:57)
[2018-12-01 23:31] LABS: BASOPHILS # (AUTO) 0.1 (0.0-0.1); BASOPHILS % 0.6 % (0.0-1.0); EOSINOPHILS # (AUTO) 0.6 (0.0-0.4); EOSINOPHILS % 4.2 % (0.0-6.0); HEMATOCRIT 38.3 % (34.2-44.1); HEMOGLOBIN 12.3 g/dL (12.0-16.0); LYMPHOCYTES # (AUTO) 5.4 (1.0-3.2); LYMPHOCYTES % 36.1 % (18.0-39.1); MEAN CORPUSCULAR HEMOGLOBIN 26.5 pg (28-32); MEAN CORPUSCULAR HGB CONC 32.1 g/dL (31-35); MEAN CORPUSCULAR VOLUME 82.4 fL (81-99); MONOCYTES # (AUTO) 0.8 (0.2-0.8); MONOCYTES % 5.3 % (4.4-11.3); NEUTROPHILS % 53.5 % (38.7-80.0); PLATELET COUNT 267 x10e3/uL (140-360); RED BLOOD COUNT 4.65 x10e6/uL (3.6-5.1); RED CELL DISTRIBUTION WIDTH 14.6 % (11.7-14.4)
[2018-12-01 23:33] LABS: CLARITY,URINE CLEAR (CLEAR); COLOR,URINE YELLOW (YELLOW); LEUKOCYTE ESTERASE ,URINE NEGATIVE (NEGATIVE); NITRITE,URINE NEGATIVE (NEGATIVE)
[2018-12-01 23:34] LABS: BILIRUBIN,URINE NEGATIVE (NEGATIVE); KETONES,URINE NEGATIVE (NEGATIVE); PROTEIN,URINE DIPSTICK NEGATIVE (NEGATIVE); URINE UROBILINOGEN 0.2 mg/dL (0.2 - 1)
[2018-12-01 23:43] LABS: BACTERIA,URINE MODERATE /HPF; EPITHELIAL CELLS,URINE RARE /LPF; RBC,URINE 0-5 /HPF (0-5)
[2018-12-02 00:15] LABS: ALANINE AMINOTRANSFERASE 28 IU/L (0-55); ALBUMIN 3.6 g/dL (3.5-5.0); ALBUMIN/GLOBULIN RATIO 0.8 (0.8-2.0); ALKALINE PHOSPHATASE 122 IU/L (40-150); AMYLASE 41 U/L (25-125); BLOOD UREA NITROGEN 26 mg/dL (7-26); BUN/CREATININE RATIO 30 (6-25); CALCIUM 9.6 mg/dL (8.4-10.2); CARBON DIOXIDE 24 mmol/L (22-29); CHLORIDE 103 mmol/L (98-107); CREATINE KINASE 65 IU/L (29-168); CREATININE, SERUM 0.86 mg/dL (0.57-1.11); EST GLOMERULAR FILTRATION RATE > 60 ML/MIN (60-); GLUCOSE 153 mg/dL (74-118); LIPASE 30 U/L (8-78); SODIUM 140 mmol/L (136-145)
--- NOTE | 2018-12-02 01:12 | Diagnostic Imaging Report ---
EXAMINATION: CHEST 2 VIEWS INDICATION: ^CHEST PAIN ^[id number] ^2335 ^Y COMPARISON: None FINDINGS: PA and lateral views TUBES and LINES: None. LUNGS: Lungs are well inflated. There is no evidence of pneumonia or pulmonary edema. PLEURA: No pleural effusion or pneumothorax. HEART AND MEDIASTINUM: The cardiomediastinal silhouette is unremarkable. BONES AND SOFT TISSUES: No acute osseous lesion. Soft tissues are unremarkable. UPPER ABDOMEN: No free air under the diaphragm. IMPRESSION: No acute thoracic abnormality. Signed by: Dr. Bashir Gutierrez MD on 12/02/2018 1:08 AM
== END 2018-12-02 01:30 | disposition home or self-care (01) ==
LOC: ER 22:48
DX: R07.89 Other chest pain (principal); N30.00 Acute cystitis without hematuria; K29.70 Gastritis, unspecified, without bleeding; E78.00 Pure hypercholesterolemia, unspecified; I10 Essential (primary) hypertension; E11.9 Type 2 diabetes mellitus without complications; G40.909 Epilepsy, unspecified, not intractable, without status epilepticus; Z87.442 Personal history of urinary calculi; F17.200 Nicotine dependence, unspecified, uncomplicated; Z79.4 Long term (current) use of insulin
CPT/HCPCS: 36415; 71046; 80053; 81001; 82150; 82550; 82553; 83690; 84484; 85025; 93005; 99284

== ENCOUNTER 2021-09-22 21:01 | Emergency (ER) | payer MEDICARE, OTHER ==
[~2021-09-22] VITALS: Ht 309.9 cm; Wt 106.6 kg
[2021-09-22 21:45] LABS: CLARITY,URINE CLOUDY (CLEAR); COLOR,URINE YELLOW (YELLOW); KETONES,URINE NEGATIVE (NEGATIVE); LEUKOCYTE ESTERASE ,URINE TRACE (NEGATIVE); NITRITE,URINE POSITIVE (NEGATIVE); PROTEIN,URINE DIPSTICK 2+ (NEGATIVE)
[2021-09-22 21:46] LABS: URINE UROBILINOGEN 0.2 mg/dL (0.2 - 1)
[2021-09-22 21:58] LABS: BACTERIA,URINE MANY /HPF; EPITHELIAL CELLS,URINE RARE /LPF; RBC,URINE 0-5 /HPF (0-5); WBC,URINE (MAN) 21-50 /HPF (0-5)
== END 2021-09-22 23:55 | disposition home or self-care (01) ==
LOC: ER 23:44
DX: N39.0 Urinary tract infection, site not specified (principal); I10 Essential (primary) hypertension; E11.9 Type 2 diabetes mellitus without complications; E78.5 Hyperlipidemia, unspecified; G40.909 Epilepsy, unspecified, not intractable, without status epilepticus; E78.00 Pure hypercholesterolemia, unspecified
CPT/HCPCS: 81001; 99282

== ENCOUNTER 2022-02-22 22:14 | Emergency (ER) | payer MEDICARE, OTHER ==
[~2022-02-22] VITALS: Ht 309.9 cm; Wt 106.6 kg
[~2022-02-22 22:14] MED LIST changes: +SODIUM CHLORIDE FLUSH 10 ML SYR IV PRN
[2022-02-22] MEDS ORDERED: ONDANSETRON HCL INJ 2MG/ML 2ML 2 MG/ML VIAL IV STA (22:30)
[2022-02-22] MEDS ORDERED: SODIUM CHLORIDE 0.9% 1000ML 1,000 ML IV ONE (22:30)
[2022-02-22] MEDS ORDERED: ASPIRIN 325 MG TAB PO ONE (22:30)
[2022-02-22 22:47] LABS: BASOPHILS # (AUTO) 0.1 (0.0-0.1); BASOPHILS % 0.5 % (0.0-1.0); EOSINOPHILS # (AUTO) 0.4 (0.0-0.4); EOSINOPHILS % 3.4 % (0.0-6.0); HEMATOCRIT 38.3 % (34.2-44.1); HEMOGLOBIN 12.1 g/dL (12.0-16.0); LYMPHOCYTES # (AUTO) 4.1 (1.0-3.2); LYMPHOCYTES % 34.9 % (18.0-39.1); MEAN CORPUSCULAR HEMOGLOBIN 26.5 pg (28-32); MEAN CORPUSCULAR HGB CONC 31.6 g/dL (31-35); MONOCYTES # (AUTO) 0.6 (0.2-0.8); MONOCYTES % 5.1 % (4.4-11.3); NEUTROPHILS # (AUTO) 6.5 (2.1-6.9); NEUTROPHILS % 55.8 % (38.7-80.0); PLATELET COUNT 257 x10e3/uL (140-360); RED BLOOD COUNT 4.56 x10e6/uL (3.6-5.1); RED CELL DISTRIBUTION WIDTH 14.5 % (11.7-14.4)
[2022-02-22 22:54] LABS: INR 0.95; PROTHROMBIN TIME 13.6 seconds (11.9-14.5)
[2022-02-22 22:55] LABS: PARTIAL THROMBOPLASTIN TIME 27.1 seconds (23.8-35.5)
[2022-02-22 23:04] LABS: ALBUMIN 3.6 g/dL (3.5-5.0); ALBUMIN/GLOBULIN RATIO 0.8 (0.8-2.0); ANION GAP 16.1 mmol/L (8-16); CALCIUM 8.4 mg/dL (8.4-10.2); CREATININE, SERUM 1.33 mg/dL (0.57-1.11); POTASSIUM 4.1 mmol/L (3.5-5.1)
[2022-02-22 23:07] LABS: AMPHETAMINES SCREEN,URINE NEGATIVE (NEGATIVE); BENZODIAZEPINES SCREEN,URINE NEGATIVE (NEGATIVE); CLARITY,URINE CLEAR (CLEAR); COLOR,URINE YELLOW (YELLOW); KETONES,URINE NEGATIVE (NEGATIVE); LEUKOCYTE ESTERASE ,URINE NEGATIVE (NEGATIVE); NITRITE,URINE NEGATIVE (NEGATIVE); PHENCYCLIDINE SCREEN,URINE NEGATIVE (NEGATIVE); PROTEIN,URINE DIPSTICK 2+ (NEGATIVE); URINE UROBILINOGEN 0.2 mg/dL (0.2 - 1)
[2022-02-22 23:11] LABS: BACTERIA,URINE FEW /HPF; EPITHELIAL CELLS,URINE MODERATE /LPF; RBC,URINE 0-5 /HPF (0-5); WBC,URINE (MAN) 0-5 /HPF (0-5)
[2022-02-22] MEDS ORDERED: INSULIN REGULAR, HUMAN 100 UNIT/1 ML SQ ONE (23:45)
[2022-02-23] MEDS ORDERED: ONDANSETRON ODT4 MG PO (02:43)
== END 2022-02-23 02:45 | disposition home or self-care (01) ==
LOC: ER 22:39
DX: R11.2 Nausea with vomiting, unspecified (principal); R07.89 Other chest pain; E11.65 Type 2 diabetes mellitus with hyperglycemia; R94.31 Abnormal electrocardiogram [ECG] [EKG]
CPT/HCPCS: 36415; 71045; 80053; 80307; 81001; 82947; 83690; 84484; 85025; 85610; 85730; 93005; 99284; J1817; J2405; J7030

== ENCOUNTER 2024-02-27 18:27 | Emergency (ER) | payer MEDICARE, OTHER ==
[~2024-02-27] VITALS: Ht 309.9 cm; Wt 106.6 kg
[~2024-02-27 18:27] MED LIST changes: +DICYCLOMINE HCL20 MG PO; +NEXIUM20 MG PO; +ONDANSETRON ODT4 MG PO; -SODIUM CHLORIDE FLUSH 10 ML SYR IV PRN
[2024-02-27 18:34] VITALS: PULSE 85; RESP 16; TEMP 98.1; O2SAT 100
[2024-02-27] MEDS ORDERED: AZITHROMYCIN250 MG PO (18:39)
== END 2024-02-27 18:51 | disposition home or self-care (01) ==
LOC: ER 18:37
DX: J02.9 Acute pharyngitis, unspecified (principal); I10 Essential (primary) hypertension; E11.9 Type 2 diabetes mellitus without complications; E78.5 Hyperlipidemia, unspecified; G40.909 Epilepsy, unspecified, not intractable, without status epilepticus; E78.00 Pure hypercholesterolemia, unspecified; I25.2 Old myocardial infarction; Z95.1 Presence of aortocoronary bypass graft
CPT/HCPCS: 99282

== ENCOUNTER → 2025-01-11 | Outpatient (REF) | payer MEDICARE, OTHER ==
[~2025-01-11] MED LIST changes: +AZITHROMYCIN250 MG PO; +PREDNISONE50 MG PO; +VALTREX1000 MG PO
== END ==
LOC: RAD 10:34
PROVIDERS: ATTEND Ophthalmology
DX: H20.11 Chronic iridocyclitis, right eye (principal); I10 Essential (primary) hypertension
CPT/HCPCS: 71046